=== PATIENT | male | born 1945 | race Two or more races ===

== ENCOUNTER 2017-07-11 09:43 | Emergency (ER) | payer OTHER ==
[~2017-07-11] VITALS: Ht 160 cm; Wt 73.5 kg
[~2017-07-11 09:43] MED LIST: COZAAR100 MG PO; FLONASE16 G1 NS; GLUCOPHAGE XR500 MG PO; KETO10TA2 PO; LEVSIN/SL0.125 MG SL; METOPROLOL SUCC25 MG PO; NO TOMA MEDICAMENTOS; SIMVASTATIN20 MG PO; TAMS0.4C PO; TUSNEL LIQUID178 ML PO; ZITHROMAX TRI-500 MG PO; ZOCOR40 MG PO
== END 2017-07-11 14:02 | disposition home or self-care (01) ==
LOC: ER 09:43
DX: S50.02XA Contusion of left elbow, initial encounter (principal); S70.02XA Contusion of left hip, initial encounter; S79.822A Other specified injuries of left thigh, initial encounter; W01.198A Fall on same level from slipping, tripping and stumbling with subsequent striking against other object, initial encounter; Y93.89 Activity, other specified; Y92.018 Other place in single-family (private) house as the place of occurrence of the external cause; Y99.8 Other external cause status

== ENCOUNTER → 2017-08-06 | Outpatient (CLI) | payer OTHER | END | disposition home or self-care (01) | LOC: RAD 10:18 | DX: M25.561 Pain in right knee (principal); M25.562 Pain in left knee; M25.522 Pain in left elbow ==

== ENCOUNTER 2017-08-27 08:53 | Outpatient (CLI) | payer OTHER | END 2017-08-27 08:59 | disposition home or self-care (01) | LOC: LAB 08:53 | DX: I10 Essential (primary) hypertension (principal); E11.9 Type 2 diabetes mellitus without complications; E03.8 Other specified hypothyroidism; E78.2 Mixed hyperlipidemia ==

== ENCOUNTER → 2017-11-24 09:27 | Outpatient (CLI) | payer OTHER | END | disposition home or self-care (01) | LOC: LAB 09:27 | DX: N40.0 Benign prostatic hyperplasia without lower urinary tract symptoms (principal); R97.20 Elevated prostate specific antigen [PSA]; N20.0 Calculus of kidney ==

== ENCOUNTER 2017-11-24 09:41 | Outpatient (CLI) | payer OTHER | END 2017-11-24 09:43 | disposition home or self-care (01) | LOC: SONOGRAMA 09:41 | DX: N21.0 Calculus in bladder (principal); N40.0 Benign prostatic hyperplasia without lower urinary tract symptoms; R97.20 Elevated prostate specific antigen [PSA]; N20.0 Calculus of kidney ==

== ENCOUNTER 2017-11-25 08:30 | Outpatient (CLI) | payer OTHER | END 2017-11-25 09:13 | disposition home or self-care (01) | LOC: LAB 08:30 | DX: I10 Essential (primary) hypertension (principal); E11.9 Type 2 diabetes mellitus without complications; E03.8 Other specified hypothyroidism; E78.2 Mixed hyperlipidemia ==

== ENCOUNTER → 2018-01-20 10:01 | Outpatient (CLI) | payer OTHER | END | disposition home or self-care (01) | LOC: LAB 10:01 | DX: I11.9 Hypertensive heart disease without heart failure (principal); E78.2 Mixed hyperlipidemia; E11.9 Type 2 diabetes mellitus without complications ==

== ENCOUNTER 2018-03-02 09:20 | Outpatient (CLI) | payer OTHER | END 2018-03-02 09:32 | disposition home or self-care (01) | LOC: LAB 09:20 | DX: I10 Essential (primary) hypertension (principal); E03.8 Other specified hypothyroidism; E11.9 Type 2 diabetes mellitus without complications; E78.2 Mixed hyperlipidemia; K92.1 Melena; D64.0 Hereditary sideroblastic anemia; M25.522 Pain in left elbow ==

== ENCOUNTER 2018-03-06 09:03 | Outpatient (CLI) | payer OTHER | END 2018-03-06 09:05 | disposition home or self-care (01) | LOC: SONOGRAMA 09:03 | DX: R10.32 Left lower quadrant pain (principal) ==

== ENCOUNTER 2018-03-27 16:32 | Outpatient (CLI) | payer OTHER | END 2018-03-27 16:40 | disposition home or self-care (01) | LOC: LAB 16:32 | DX: N40.0 Benign prostatic hyperplasia without lower urinary tract symptoms (principal); N20.0 Calculus of kidney ==

== ENCOUNTER 2018-03-30 06:11 | Outpatient (CLI) | payer OTHER | END 2018-03-30 06:17 | disposition home or self-care (01) | LOC: LAB 06:11 | DX: N40.0 Benign prostatic hyperplasia without lower urinary tract symptoms (principal); N20.0 Calculus of kidney ==

== ENCOUNTER → 2020-10-09 11:10 | Outpatient (CLI) | payer OTHER | END | disposition home or self-care (01) | LOC: EKG 11:10 | PROVIDERS: ATTEND Internal Medicine Cardiovascular Disease | DX: I10 Essential (primary) hypertension (principal); J44.9 Chronic obstructive pulmonary disease, unspecified ==

== ENCOUNTER 2022-09-11 18:57 | Inpatient (IN) | payer OTHER ==
[~2022-09-11] VITALS: Ht 160 cm; Wt 721.2 kg
[2022-09-11] MEDS ORDERED: ECOTRIN81 MG (19:09)
[2022-09-11] MEDS ORDERED: ATORVASTATIN CA10 MG PO (19:09)
[2022-09-12] MEDS ORDERED: METFORMIN HCL1000 M3 (11:01)
[2022-09-12] MEDS ORDERED: SIMETHICONE180 MG (11:04)
[2022-09-12] MEDS ORDERED: METOPROLOL SUCC50 MG (11:04)
[2022-09-12] MEDS ORDERED: FARXIGA10 MG (11:04)
== END 2022-09-16 10:00 | disposition designated cancer center or children's hospital (05) | DRG 280 ==
LOC: ER 18:57 → ICU 22:42 → ICU-2 22:42 → ICU 09-12 04:40
PROVIDERS: ADMIT Internal Medicine; ATTEND Internal Medicine
PROC: B24BZZZ Ultrasonography of Heart with Aorta (ICD-10-PCS; principal; 2022-09-12)
DX: I21.4 Non-ST elevation (NSTEMI) myocardial infarction (principal); A48.0 Gas gangrene; N17.9 Acute kidney failure, unspecified; I24.9 Acute ischemic heart disease, unspecified; I25.10 Atherosclerotic heart disease of native coronary artery without angina pectoris; E11.65 Type 2 diabetes mellitus with hyperglycemia; Z79.4 Long term (current) use of insulin; I12.9 Hypertensive chronic kidney disease with stage 1 through stage 4 chronic kidney disease, or unspecified chronic kidney disease; E11.22 Type 2 diabetes mellitus with diabetic chronic kidney disease; N18.9 Chronic kidney disease, unspecified; Z20.822 Contact with and (suspected) exposure to COVID-19; Z95.5 Presence of coronary angioplasty implant and graft

== ENCOUNTER 2023-03-06 18:31 | Emergency (ER) | payer OTHER ==
[~2023-03-06] VITALS: Ht 167.6 cm; Wt 68.0 kg
[~2023-03-06 18:31] MED LIST changes: +ATORVASTATIN CA10 MG PO; +ECOTRIN81 MG; +FARXIGA10 MG; +METFORMIN HCL1000 M3; +METOPROLOL SUCC50 MG; +SIMETHICONE180 MG
[2023-03-06 19:55] LABS: HEMATOCRIT 45.7 % (39.0-48.0); HEMOGLOBIN 15.8 g/dL (13-16.00); MEAN CELL VOLUME 88.8 fL (80.0-100.00); MEAN CORPUSCULAR HEMOGLOBIN 30.6 pg (27.00-32.0); MEAN CORPUSCULAR HGB CONC 34.5 g/dl (32.0-36.0); PLATELET COUNT 333 K/uL (150-450); RED BLOOD COUNT 5.15 M/uL (4.00-6.00); RED CELL DISTRIBUTION WIDTH 13.2 % (11.5-14.5); URINE APPEARANCE Cloudy; URINE BILIRRUBIN Small (NEGATIVE); URINE BLOOD Negative; URINE COLOR Dark Yellow; URINE GLUCOSE Negative (NEGATIVE); URINE LEUKOCYTE Trace; URINE NITRATE Negative
[2023-03-06 19:56] LABS: URINE BACTERIA 59.2 uL (0.0-1933); URINE RBC 3.3 uL (0.0-20.8); URINE WBC 32.7 uL (0.0-23.2)
[2023-03-06 20:08] LABS: URINE PROTEIN 100 (NEGATIVE)
[2023-03-06] MEDS ORDERED: ZYRTEC10 M3 PO (20:52)
[2023-03-06] MEDS ORDERED: ZITHROMAX500 MG PO (20:52)
[2023-03-06] MEDS ORDERED: TUSNEL LIQUID178 ML PO (20:52)
== END 2023-03-06 21:07 | disposition home or self-care (01) ==
LOC: ER 18:31
PROVIDERS: General Practice
DX: B34.9 Viral infection, unspecified (principal); E11.9 Type 2 diabetes mellitus without complications; Z79.84 Long term (current) use of oral hypoglycemic drugs; I10 Essential (primary) hypertension; Z20.822 Contact with and (suspected) exposure to COVID-19
CPT/HCPCS: 36415; 71046; 96372; 99284; J1885

== ENCOUNTER 2024-09-13 20:29 | Inpatient (IN) | payer OTHER ==
[~2024-09-13] VITALS: Ht 157.5 cm; Wt 68.9 kg
[~2024-09-13 20:29] MED LIST changes: +ZITHROMAX500 MG PO; +ZYRTEC10 M3 PO
--- NOTE | 2024-09-13 20:59 | NUR ---
PTE ALERTA Y ORIENTADO X3 ACOMPANADO DE [place]A NIETA. PTE REFIERE DOLOR DE PECHO Y TAQUICARDIA QUE COMENZO HOY. SE JANELL S/V (PULSO 166), SE REALIZA EKG Y SE MUESTRA A DR. RODRIGUES QUIEN INDICA UBICAR AL PTE EN CHEST PAIN. SE UBICA A PTE.
[2024-09-13] MEDS ORDERED: AMIODARONE HCL 50 MG/ML AMPUL IV ONE (21:15)
[2024-09-13] MEDS ORDERED: 0.9 % SODIUM CHLORIDE 1,000 ML IV SCH ×3 (21:15→22:45)
[2024-09-13 21:16] LABS: BASO % 0.7 % (0.1-1.2); EOS # 0.23 (0.04-0.54); EOS % 2.8 % (0.7-7.0); LYMPH # 2.47 (1.18-3.74); LYMPH % 30.4 % (19.3-53.1); MEAN PLATELET VOLUME 9.80 fl (9.4-12.4); MONO # 0.53 (0.24-0.82); MONO % 6.5 % (4.7-12.5); NEUT # 4.82 (1.56-6.13); NEUT % 59.4 % (34.0-71.1); RED CELL DISTRIBUTION WIDTH 12.6 % (11.6-14.4)
[2024-09-13] MEDS ORDERED: ENOXAPARIN SODIUM 60 MG/0.6 ML SYRINGE SUBCUTANEO ONE (21:30)
--- NOTE | 2024-09-13 21:31 | NUR ---
SE CONECTA PACIENTE A MONITOR CARDIACO Y OXIMETRIA. SE CANALIZA PACIENTE Y POR ORDEN VERBAL DE DR. RODRIGUES SE ADMINITRA SHEREE DE 150 MG DE AMIDARONE. SE JANELL MUESTRAS DE LABORATORIOS Y SE ENVIAN. PENDIENTE A PLACA
[2024-09-13 21:32] LABS: INR 0.97
[2024-09-13 21:37] LABS: ALT/SGPT 36.0 U/L (12-78); AST/SGOT 25.0 U/L (15-37); BILIRUBIN TOTAL 0.45 mg/dL (0.3-1.2); BUN CREA RATIO 22.0 (7.0-25.0); CREATININE SERUM 1.43 mg/dL (0.70-1.30); GFR 47.7; GLOBULINA 3.2 G/DL (2.4-3.5); LDH 153.0 U/L (87-241); OSMOLALITY SERUM 302.0 MOSM/KG (275-295); PHOSPHOKINASE CREATININE 137.0 U/L (39-308)
[2024-09-13 22:04] LABS: GLUCOSE FASTING 247.0 mg/dL (65-100)
[2024-09-13] MEDS ORDERED: FAMOTIDINE/PF 20 MG in 0.9 % SODIUM CHLORIDE 8 ML IV PUSH SCH (22:31)
[2024-09-13] MEDS ORDERED: ACETAMINOPHEN 500 MG GEL..CAP PO PRN (22:45)
[2024-09-13] MEDS ORDERED: DEXTROSE 50 % IN WATER 0.5 G/ML DISP.SYRIN IV PRN (22:45)
[2024-09-13] MEDS ORDERED: INSULIN LISPRO 1,000 UNIT/10 ML UNITS SUBCUTANEO PRN (22:45)
[2024-09-14] VITALS (14 sets, daily range): BP systolic 136–185; BP diastolic 66–75; O2SAT 97–99
[2024-09-14] MEDS ORDERED: AMIODARONE HCL 900 MG in DEXTROSE 5 % IN WATER 500 ML IV SCH (06:30)
[2024-09-14 06:54] LABS: URINE APPEARANCE Clear; URINE BILIRRUBIN Negative (NEGATIVE); URINE BLOOD Negative; URINE COLOR Yellow; URINE KETONE Negative (NEGATIVE); URINE LEUKOCYTE Moderate; URINE NITRATE Negative; URINE PROTEIN Negative (NEGATIVE); URINE UROBILINOGEN 0.2 E.U./dl
[2024-09-14 06:56] LABS: URINE BACTERIA 319.2 uL (0.0-1933); URINE EPITHELIAL CELLS 17.2 uL (0.0-38.8); URINE WBC 24.9 uL (0.0-23.2)
[2024-09-14 07:03] LABS: URINE CAST 0.29 uL (0.0-1.40); URINE GLUCOSE 250 MG/DL (NEGATIVE); URINE RBC 0.1 uL (0.0-20.8)
[2024-09-14] MEDS ORDERED: ENOXAPARIN SODIUM 60 MG/0.6 ML SYRINGE SUBCUTANEO SCH (09:00)
[2024-09-14] MEDS ORDERED: ATORVASTATIN CALCIUM 40 MG TABLET PO SCH (09:00)
[2024-09-14] MEDS ORDERED: AMIODARONE HCL 200 MG TABLET PO STA (09:58)
[2024-09-14] MEDS ORDERED: AMIODARONE HCL 200 MG TABLET PO SCH (17:00)
[2024-09-14] MEDS ORDERED: DEXTROSE IV SCH (21:30)
[2024-09-14] MEDS ORDERED: AMIODARONE IV SCH (21:30)
[2024-09-14] MEDS ORDERED: [UNRECOGNIZED DRUG - OTHER] IV SCH (21:30)
[2024-09-15] VITALS (10 sets, daily range): BP systolic 147–160; BP diastolic 72–80; O2SAT 94–100
[2024-09-15] MEDS ORDERED: AMLODIPINE BESYLATE 5 MG TABLET PO SCH (17:00)
[2024-09-16] VITALS (8 sets, daily range): BP systolic 135–178; BP diastolic 70–80; O2SAT 96–99
[2024-09-16] MEDS ORDERED: METOPROLOL SUCCINATE 25 MG TAB.SR.24H PO SCH (09:00)
[2024-09-16] MEDS ORDERED: APIXABAN 5 MG TABLET PO SCH (09:00)
[2024-09-16 13:05] LABS: ALT/SGPT 33.0 U/L (12-78); AST/SGOT 16.0 U/L (15-37); BILIRUBIN TOTAL 0.92 mg/dL (0.3-1.2); BUN CREA RATIO 15.0 (7.0-25.0); CREATININE SERUM 1.17 mg/dL (0.70-1.30); GFR 60.14; GLOBULINA 2.9 G/DL (2.4-3.5); GLUCOSE FASTING 154.0 mg/dL (65-100); OSMOLALITY SERUM 288.0 MOSM/KG (275-295)
[2024-09-16] MEDS ORDERED: LIPITOR40 M1 PO (16:09)
[2024-09-16] MEDS ORDERED: TOPROL XL25 M1 PO (16:09)
[2024-09-16] MEDS ORDERED: AMIODARONE HCL200 MG PO (16:09)
[2024-09-16] MEDS ORDERED: AMLODIPINE BESYL5 MG PO (16:09)
[2024-09-16] MEDS ORDERED: ELIQUIS5 MG PO (16:09)
== END 2024-09-16 22:26 | disposition home or self-care (01) | DRG 309 ==
LOC: ER 20:29 → ICU-2 22:33 → SEC-K 09-14 17:15 → MEDI 09-14 17:25
PROVIDERS: General Practice; ADMIT Internal Medicine; ATTEND Internal Medicine
PROC: B24BYZZ Ultrasonography of Heart with Aorta using Other Contrast (ICD-10-PCS; principal; 2024-09-13)
PROC: 4A12X4Z Monitoring of Cardiac Electrical Activity, External Approach (ICD-10-PCS; 2024-09-14)
DX: I48.20 Chronic atrial fibrillation, unspecified (principal); N17.9 Acute kidney failure, unspecified; I10 Essential (primary) hypertension; E11.9 Type 2 diabetes mellitus without complications; Z79.4 Long term (current) use of insulin

== ENCOUNTER 2024-10-12 23:27 | Emergency (ER) | payer OTHER ==
[~2024-10-12 23:27] MED LIST changes: +AMIODARONE HCL200 MG PO; +AMLODIPINE BESYL5 MG PO; +ELIQUIS5 MG PO; +LIPITOR40 M1 PO; +TOPROL XL25 M1 PO
== END 2024-10-13 08:09 | disposition left against medical advice (07) ==
LOC: ER 23:27
DX: Z53.21 Procedure and treatment not carried out due to patient leaving prior to being seen by health care provider (principal)

== ENCOUNTER 2024-12-09 09:33 | Emergency (ER) | payer OTHER ==
[~2024-12-09] VITALS: Ht 160 cm; Wt 68.9 kg
[2024-12-09] MEDS ORDERED: TETRACAINE HCL 20 DR/ML DROPS OP ONE (10:30)
[2024-12-09] MEDS ORDERED: MAXITROL EYE DRO5 ML OP (10:31)
== END 2024-12-09 10:36 | disposition home or self-care (01) ==
LOC: ER 09:34
DX: T15.90XA Foreign body on external eye, part unspecified, unspecified eye, initial encounter (principal); I10 Essential (primary) hypertension; E11.9 Type 2 diabetes mellitus without complications; Z79.84 Long term (current) use of oral hypoglycemic drugs; Z88.0 Allergy status to penicillin; Z88.2 Allergy status to sulfonamides